=== PATIENT | female | born 1990 | race Caucasian/White ===

== ENCOUNTER 2022-09-14 10:50 | Day surgery (SDC) | payer OTHER, SELFPAY ==
[2022-09-14] VITALS (18 sets, daily range): BP systolic 84–118; BP diastolic 58–80; PULSE 62–96; RESP 11–20; TEMP 36.3–36.8; O2SAT 90–100
--- NOTE | ~2022-09-14 | US_ITS ---
EXAMINATION: US pelvic complete w TV DATE: 09/14/2022 14:24 INDICATION: Retained products of conception. Comparison:No prior studies for comparison. TECHNIQUE: Multiple transabdominal and endovaginal sonographic images of the pelvis performed. FINDINGS: The uterus measures 8.9 x 4.5 x 5.9 cm. There is debris in the region of the cervix which i s a complex appearance, suspicious for retained products of conception. The endometrial complex measu res 6 mm. The right ovary measures 3.6 x 1.8 x 2.4 cm and the left ovary measures 5 x 3.6 x 4.5 cm. There is a 4 cm left ovarian cyst. There are small follicles in each ovary. Normal doppler signal in both ovarie s. There is free fluid in the pelvis. There are no abnormal masses seen on either side. IMPRESSION: 1. Complex debris in the cervix, suspicious for retained products of conception. 2: Left ovarian cyst measuring 4 cm. Reviewed, dictated and finalized at location L. IMPRESSION: 1. Complex debris in the cervix, suspicious for retained products of conception . 2: Left ovarian cyst measuring 4 cm.
[2022-09-14 11:41] LABS: Basophils Absolute Auto 0.1 K/mm3 (0.0-0.1); Basophils Percent Auto 0.8 % (0.2-1.2); Eosinophils Absolute Auto 0.2 K/mm3 (0-0.3); Eosinophils Percent Auto 1.7 % (0-4.4); Hematocrit 27.7 % (37.0-47.0); Hemoglobin 8.4 g/dL (12.0-15.0); Immature Granulocyte Absolute 0.06 K/mm3 (0.00-0.031); Immature Granulocyte Percent A 0.4 % (0-0.5); Lymphocytes Absolute Auto 4.86 K/mm3 (0.9-3.2); Lymphocytes Percent Auto 34.1 % (18.3-44.2); Mean Corpuscular HGB Conc 30.3 g/dl (32-36); Mean Corpuscular Hemoglobin 26.7 pg (26-34); Mean Corpuscular Volume 87.9 fl (80-100); Mean Platelet Volume 11.3 fl (7.4-10.4); Monocytes Absolute Auto 2.2 K/mm3 (0.1-0.6); Monocytes Percent Auto 15.1 % (2.6-8.5); Neutrophils Absolute Auto 6.8 K/mm3 (1.3-6.7); Neutrophils Percent Auto 47.9 % (45.5-73.1); Platelet Count Result 323 k/mm3 (150-375); Red Blood Count 3.15 M/mm3 (4.2-5.4); Red Cell Distribution Width 14.7 % (11.5-14.5); White Blood Count 14.2 K/mm3 (4.5-10.0)
[2022-09-14 12:17] LABS: Beta HCG Quantitative 30.38 mIU/ML
--- NOTE | 2022-09-14 12:55 | ED.FEMALEGU ---
HPI - Female Genitourinary General Chief complaint: Vaginal Bleeding Stated complaint: vag. bleeding, Time Seen by Provider: 09/14/22 12:00 History of Present Illness HPI Narrative: Patient is a 31-year-old female presenting with vaginal bleeding. Patient states that she had an approximately 2 months ago. States that several weeks after receiving the first round of pills she again had vaginal bleeding so she was given another round. States that she was doing well until the last week when she again started having bleeding. States that she has been following with a Dr. Watson at [facility] has been monitoring her beta-hCG. States that they did say sometime last week that she might require a D&C. Today she felt lightheaded so she came in for evaluation. States that while she was in the waiting room she had a large gush of blood and then passed out. She struck her lip sustaining a laceration. She is complaining of abdominal cramping and some nausea. She is unsure of her last tetanus shot. Related Data Allergies Allergy/AdvReac Type Severity Reaction Status Date / Time tramadol Allergy Intermediate Hives / Verified 09/14/22 16:14 Red Face sulfa Allergy Unknown Unknown Uncoded 09/14/22 16:14 Review of Systems Review of Systems: All systems reviewed & are unremarkable except as noted in HPI and below PMFSH Past Medical History Medical History Anemia Smoker Surgical History Surgical History (Updated 09/14/22 @ 16:02 by Tyrone Starr MD) Hx of tonsillectomy Exam Narrative: GENERAL: Well-appearing, well-nourished, and in no acute distress. HEAD: Normocephalic, atraumatic. EYES: PERRLA and EOMI. ENT: Nares clear, no rhinorrhea or epistaxis. Laceration through the inferior aspect of left portion of the left upper lip, does not involve the vermilion border, no intraoral or dental injuries noted NECK: Supple. CHEST: Clear to auscultation. No respiratory distress. HEART: Regular rate and rhythm. No murmur heard. Normal peripheral pulses. ABDOMEN: Soft, mild bilateral lower abdominal tenderness without guarding or rebound EXTREMITIES: Normal range of motion. No edema. SKIN: Warm, dry, no rash. NEURO: No focal deficits. Alert and oriented x3. PSYCH: Normal mood and affect. Course Vital Signs Vital signs: Vital Signs Temperature 98.1 F 09/14/22 11:11 Pulse Rate 69 09/14/22 11:11 Respiratory Rate 13 09/14/22 11:11 Blood Pressure 107/73 09/14/22 11:11 Pulse Oximetry 100 09/14/22 11:11 Oxygen Delivery Room Air 09/14/22 11:11 Temperature 98.2 F 09/14/22 15:58 Pulse Rate 91 09/14/22 17:35 Respiratory Rate 20 09/14/22 15:58 Blood Pressure 111/70 09/14/22 17:35 Pulse Oximetry 99 09/14/22 16:35 Oxygen Delivery Room Air 09/14/22 17:35 Procedures Laceration Laceration 1: Date: 09/14/22 Time: 15:38 Site: lip Side (If applicable): left Size (cm): 0.5 Description: linear Depth: simple, single layer Local Anesthetic: other anesthetic Pre-repair: irrigated ====== Skin Level ====== Skin layer closed with: vicryl Size (cm): 5-0 Number of sutures: 1 Technique: simple, interrupted ====== Subcutaneous Layer ====== ====== Muscle Layer ====== ====== Tendon Layer ====== MDM - Female Genitourinary MDM Narrative Medical decision making narrative: Patient is a 31-year-old female presenting with persistent vaginal bleeding in the setting of a recent medical as well as an episode of syncope. Vitals within normal limits. Exam remarkable for the above. Plan for labs, fluids, pelvic ultrasound, Toradol, Zofran. We will update her tetanus, apply let gel, will likely need a couple sutures in her lip. Patient received RhoGAM last week for vaginal bleeding. Will not redose given she received this within the last week. Hemoglobin is 8.4. Con
[2022-09-14] MEDS: KETOROLAC 30 MG/ML VIAL (*BKC) IV PUSH (13:06)
[2022-09-14] MEDS: ONDANSETRON INJ 4 MG/2 ML VIAL IV PUSH ×2 (13:06→16:53)
[2022-09-14] MEDS: SODIUM CHLORIDE 0.9% IV 1,000 ML 999 ML IV CONT (13:07)
[2022-09-14] MEDS: LIDOCAINE, EPINEPHRINE, TETRACAINE VISCOUS SOLN 3 ML TOPICAL (14:17)
[2022-09-14] MEDS: TETANUS,DIPHTHERIA,AC PERTUSSIS ADULT (0.5 ML) BOOSTRIX IM (14:17)
[2022-09-14] MEDS: fentaNYL CITRATE INJ (*CRX) 100 MCG/2 ML VIAL 50 MCG IV PUSH (15:25)
--- NOTE | 2022-09-14 15:50 | WPDHPUPDATE1 ---
History and Physical Update Update Date/Time: 09/14/22 15:50 History and Physical has been reviewed, including an updated exam of the patient. There are NO changes in the patient's condition. Risks, benefits, and alternatives have been discussed and questions answered. Patient agrees to proceed with procedure.
--- NOTE | 2022-09-14 15:50 | PM.IMHP ---
H&P: HPI History of Present Illness Date/Time: 09/14/22 15:50 Chief Complaint: 31-year-old 3 para 2, who is 2 months out from failed medical who is seen after falling and hitting her left. She was noted be mildly anemic a hemoglobin of 8. Ultrasound shows retained products conception. Suction D&C was reviewed and risks and benefits reviewed with the patient consenting to D&C. Narrative: Since 31-year-old 3 para 2 who is admitted through the ER. She had medical induced x2 continued to bleed and then had a fall today she came in hemoglobin of 8 ultrasound shows retained products conception she is offered suction dilatation curettage risks and benefits reviewed. Meds Home Medications and Allergies Allergies Allergy/AdvReac Type Severity Reaction Status Date / Time tramadol Allergy Intermediate Hives / Verified 03/14/18 13:08 Red Face sulfa Allergy Unknown Unknown Uncoded 03/14/18 13:08 Vital Signs Vital Signs - 24 hr 09/14/22 11:11 09/14/22 11:31 09/14/22 11:37 Temperature 98.1 F Pulse Rate 69 62 62 Respiratory Rate 13 15 13 Blood Pressure 107/73 85/58 L 84/61 L Pulse Oximetry 100 100 90 Oxygen Delivery Room Air 09/14/22 11:39 09/14/22 11:40 09/14/22 12:30 Temperature Pulse Rate 67 63 71 Respiratory Rate 12 11 L 15 Blood Pressure 87/58 L 91/61 L Pulse Oximetry 100 Oxygen Delivery 09/14/22 12:45 09/14/22 12:46 09/14/22 13:01 Temperature Pulse Rate 67 72 64 Respiratory Rate 14 11 L 16 Blood Pressure 93/59 L 97/61 L Pulse Oximetry 100 100 100 Oxygen Delivery 09/14/22 13:08 09/14/22 13:16 Temperature Pulse Rate 75 74 Respiratory Rate 12 16 Blood Pressure 101/68 102/69 Pulse Oximetry 100 Oxygen Delivery Exam Const: General: cooperative, healthy appearing and comfortable Nutritional Appearance: average body habitus Orientation/consciousness: oriented to person, oriented to place and oriented to time HENMT: Head: other ( Lip laceration) Resp: Effort & Inspection: normal respiratory effort Cardio: Rate: regular rate Rhythm: regular rhythm Heart sounds: S1 normal heart sound present and S2 normal heart sound present GI: Inspection: normal to inspection : External Female Exam: normal external appearance Speculum Exam - Vagina: normal appearance of the vagina Speculum Exam - Cervix: normal appearance of the cervix Bimanual exam- vagina & uterus: enlarged H&P: Results Labs Labs: Short CBC 09/14/22 Range/Units 11:28 WBC 14.2 H (4.5-10.0) K/mm3 Hgb 8.4 L (12.0-15.0) g/dL Hct 27.7 L (37.0-47.0) % Plt Count 323 (150-375) k/mm3 Assessment and Plan Assessment and plan (1) Retained products of conception: Status: Acute (2) Laceration of lip: Code(s): S01.511A - Laceration without foreign body of lip, initial encounter Status: Acute Plan suction dilatation curettage
[2022-09-14] MEDS: LACTATED RINGERS 1,000 ML 30 ML IV CONT (16:00)
--- NOTE | 2022-09-14 16:02 | WPDANESEPPF ---
Anes - Initial Pre Proc Eval Procedure: Operation Date: 09/14/22 16:00 Proposed Procedures p D&C Suction and Sharp - Tyrone Rodriguez MD Date/Time: 09/14/22 16:02 Surgeon: Tyrone Rodriguez MD Pre Op Diagnosis: vag. bleeding, Patient Data Age: 31 Gender: F Height: 1.65 m Weight: 63 kg Last Vital Signs Temp 36.5 C 09/14/22 15:45 Pulse 86 09/14/22 15:45 Resp 16 09/14/22 15:45 BP 118/80 09/14/22 15:45 Pulse Ox 100 09/14/22 15:45 O2 Del Method Room Air 09/14/22 11:11 Allergies Allergy/AdvReac Type Severity Reaction Status Date / Time tramadol Allergy Intermediate Hives / Verified 03/14/18 13:08 Red Face sulfa Allergy Unknown Unknown Uncoded 03/14/18 13:08 Home Medications Medication Instructions Recorded Confirmed Type hydrocodone 5 mg-acetaminophen 325 1 tablet PO Q4H PRN pain #14 tabs 09/14/22 Rx mg tablet Laboratory Tests 09/14/22 11:28 WBC 14.2 H K/mm3 (4.5-10.0) RBC 3.15 L M/mm3 (4.2-5.4) Hgb 8.4 L g/dL (12.0-15.0) Hct 27.7 L % (37.0-47.0) MCV 87.9 fl (80-100) MCH 26.7 pg (26-34) MCHC 30.3 L g/dl (32-36) RDW 14.7 H % (11.5-14.5) Plt Count 323 k/mm3 (150-375) MPV 11.3 H fl (7.4-10.4) Immature Gran % (Auto) 0.4 % (0-0.5) Neut % (Auto) 47.9 % (45.5-73.1) Lymph % (Auto) 34.1 % (18.3-44.2) [place] % (Auto) 15.1 H % (2.6-8.5) Eos % (Auto) 1.7 % (0-4.4) Baso % (Auto) 0.8 % (0.2-1.2) Lymph # (Auto) 4.86 H K/mm3 (0.9-3.2) [place] # (Auto) 2.2 H K/mm3 (0.1-0.6) Eos # (Auto) 0.2 K/mm3 (0-0.3) Baso # (Auto) 0.1 K/mm3 (0.0-0.1) Abs Immat Gran (auto) 0.06 H K/mm3 (0.00-0.031) Absolute Neuts (auto) 6.8 H K/mm3 (1.3-6.7) Absolute Nucleated RBC 0.0 K/mm3 (0.0-0.012) Nucleated RBC % 0.0 % (0.0-0.2) Beta HCG, Quant 30.38 mIU/ML Blood Type B Negative Antibody Screen Positive Antibody Identification Passive Due to RH Imm Glob Antigen Identification Cancelled PURA, IgG Interpret Not Performed PURA, Poly Interpret Negative PURA, Complement Interp Not Performed Screen Not Reportable Baby's Blood Type Not Reportable Baby's PURA Not Reportable Doses of RhIg Required 0 Patient hx anesthesia problems: none Family hx anesthesia problems: none Results Review: All pre-operative results and documents have been reviewed as part of the pre-operative evaluation. [facility] Past Medical History Medical History Anemia Smoker Surgical History Surgical History (Updated 09/14/22 @ 16:02 by Tyrone Starr MD) Hx of tonsillectomy Anes - Eval Final PreProcedure Day of Procedure 09/14/22 16:02 Patient weight: normal Heart: regular rate and rhythm Lungs: clear to auscultation Airway: Mallampati scale class II Neurological: alert and oriented Last oral intake: >/= 8 hours ASA classification: II Emergent: yes Anesthetic plan: proceed Anesthesia type and monitoring: general GIVS and standard monitoring Results Review: All pre-operative results and documents have been reviewed as part of the pre-operative evaluation. Informed Consent: The patient's anesthetic plan and its attendant risks and benefits were discussed with the patient/family/POA. Questions were solicited and answers provided to the satisfaction of the patient/family/POA.
--- NOTE | 2022-09-14 16:34 | P.OP_ITS ---
Procedure Note - Detailed Date of Procedure 09/14/22 Pre-op Diagnosis vag. bleeding, Post-op Diagnosis Same Procedure Performed suction dilatation curettage Surgeon Tyrone Rodriguez MD Anesthesia MAC and Local Indications this is a 31-year-old 3 para 2 with a failed medically induced aborti on. She was she said heavy bleed with the Pap the dates. Ultrasound shows retained products of conception Findings uterus sounded to 10cm. Tissue consistent products of conception Description of Procedure the patient was prepped draped in sterile fashion placed dorsal lithotomy position. Excellent IV sedation placed posterior. Anterior cervix grasped with single-tooth tenaculum. 2.5cc 1% xylocaine anesthesia placed at 2, 4, 8, 10:00 a.m. of the cervix. Uterus sounded to 10cm. Serial dilatation fragmented performed followed by passes the 10. Suction curette. Moderate amount of clot tissue was removed until a good grating sound was heard. The instrument withdrawn and blood loss estimated 25cc. All sponge, needle, instrument counts were correct. There were no immediate complications Estimated Blood Loss 25 Drains No Packing No Pathology Yes Complications No immediate complications Condition Stable Disposition PACU
[2022-09-14] MEDS: fentaNYL CITRATE INJ (*CRX) 100 MCG/2 ML VIAL 25 MCG IV PUSH ×3 (16:45→17:25)
[2022-09-14] MEDS: oxyCODONE HCL (*CRX) 5 MG TAB IR PO (17:11)
--- NOTE | 2022-09-14 19:00 | SUR.PHASEII ---
RN forgot to chart another 25mcg of Fentanyl at 1727 before discharging the patient. The patient got a total of 100mcg of fentanyl in phase 2 recovery.
== END 2022-09-14 17:45 | disposition home or self-care (01) ==
LOC: ANHED 12:00 → ANHSURGERY 15:36
PROVIDERS: Emergency Medicine; Emergency Provider Emergency Medicine; Visit Provider Obstetrics & Gynecology
PROC: (CPT 59812; principal; 2022-09-14 16:00)
DX: O07.4 Failed attempted termination of pregnancy without complication (principal); R55 Syncope and collapse; S01.511A Laceration without foreign body of lip, initial encounter; W18.39XA Other fall on same level, initial encounter; Z23 Encounter for immunization
CPT/HCPCS: 59812; 12011; 36415; 76830; 76856; 84702; 85025; 85461; 86850; 86880; 86900; 86901; 86902; 88305; 90471; 90715; 96361; 96374; 96375; 99285; A9270; J1885; J2250; J2405; J2704; J3010; J7030; J7120